=== PATIENT | male | born 1940 | race Caucasian/White ===

== ENCOUNTER 2018-12-10 05:42 | Day surgery (SDC) | payer MEDICARE ==
[~2018-12-10] VITALS: Ht 172.7 cm; Wt 94.0 kg
[~2018-12-10 05:42] MED LIST: AMLO5 PO; CIPR500 PO; LISI20 PO; PROM25 PO; RXONDA4ODT MM; WARF4 PO; Zocor20 MG PO
--- NOTE | 2018-12-10 09:26 | NUR ---
PT AND VERBALIZED UNERSTANDING OF WRITTEN AND VERBAL D/C INST. IV REMOVED. PT AMB TO THE BATHROOM /S DIFFICULTY. PT TAKEN OUT OF THE HRT CENTER VIA W/C.
== END 2018-12-10 09:30 | disposition home or self-care (01) ==
LOC: MHTC 05:42
DX: Z45.010 Encounter for checking and testing of cardiac pacemaker pulse generator [battery] (principal); I44.2 Atrioventricular block, complete; I10 Essential (primary) hypertension; I49.5 Sick sinus syndrome; I48.0 Paroxysmal atrial fibrillation; Z79.899 Other long term (current) drug therapy; Z79.02 Long term (current) use of antithrombotics/antiplatelets
CPT/HCPCS: 33228; 99152; 99153; C1785; J0690; J1644; J2250; J3010; J7030; J7040